=== PATIENT | female | born 1935 | race Caucasian/White ===

== ENCOUNTER → 2021-08-24 | Outpatient (CLI) | payer MEDICARE, BC ==
[~2021-08-24] MED LIST: COZAAR50 MG PO; FLAGYL500 MG PO; KEFLEX CAP 500500 MG PO; LEVAQUIN750 MG PO; LIPITOR TAB 2020 MG PO; PLAVIX 75 MG TA75 MG PO; SYNTHROID75 MCG PO; TOPROL XL50 MG PO
== END ==
LOC: RAD 09:59
DX: R10.9 Unspecified abdominal pain (principal)
CPT/HCPCS: 74018

== ENCOUNTER 2021-10-14 12:06 | Emergency (ER) | payer MEDICARE, BC | END 2021-10-14 12:45 | disposition left against medical advice (07) | LOC: ER1 12:06 | DX: Z53.21 Procedure and treatment not carried out due to patient leaving prior to being seen by health care provider (principal) ==

== ENCOUNTER 2021-10-30 13:42 | Inpatient (IN) | payer MEDICARE, BC ==
[~2021-10-30] VITALS: Ht 154.9 cm; Wt 95.7 kg
[2021-10-30 14:34] LABS: HEMOGLOBIN 12.8 gm/dl (12.3-15.3); RED BLOOD COUNT 4.06 M/UL (4.00-5.10); WHITE BLOOD COUNT 5.3 K/UL (4.5-11.0)
[2021-10-31] MEDS ORDERED: CYANOCOBAL1000 MCG/1 INJ (00:10)
[2021-10-31] MEDS ORDERED: VESICARE10 MG PO (00:11)
[2021-10-31 03:01] LABS: HEMOGLOBIN 11.9 gm/dl (12.3-15.3); RED BLOOD COUNT 3.81 M/UL (4.00-5.10); WHITE BLOOD COUNT 6.3 K/UL (4.5-11.0)
[2021-10-31 03:18] LABS: BUN/CREATININE RATIO 25 (0-10)
--- NOTE | 2021-11-01 11:03 | NUR ---
STATS ON RA ARE 83
[2021-11-02] MEDS ORDERED: LEVOFLOXACIN500 MG PO (09:19)
== END 2021-11-02 11:46 | disposition home or self-care (01) | DRG 193 ==
LOC: ER1 13:42 → CDU 16:35 → M/S 16:35
PROVIDERS: Nurse Practitioner; ADMIT Internal Medicine
DX: J15.9 Unspecified bacterial pneumonia (principal); J96.21 Acute and chronic respiratory failure with hypoxia; E87.2 Acidosis; Z20.822 Contact with and (suspected) exposure to COVID-19; E03.9 Hypothyroidism, unspecified; I35.0 Nonrheumatic aortic (valve) stenosis; E53.8 Deficiency of other specified B group vitamins; I12.9 Hypertensive chronic kidney disease with stage 1 through stage 4 chronic kidney disease, or unspecified chronic kidney disease; N18.30 Chronic kidney disease, stage 3 unspecified; G47.33 Obstructive sleep apnea (adult) (pediatric); H91.93 Unspecified hearing loss, bilateral; E78.5 Hyperlipidemia, unspecified; Z88.2 Allergy status to sulfonamides; Z88.1 Allergy status to other antibiotic agents; Z91.041 Radiographic dye allergy status; Z91.013 Allergy to seafood; Z83.6 Family history of other diseases of the respiratory system
CPT/HCPCS: 0240U; 36415; 36600; 71045; 80048; 81001; 82550; 82553; 82803; 83605; 83735; 83874; 83880; 84484; 85025; 85652; 86140; 87040; 93005; 94760; 96372; 96374; 99285; J0696; J1650

== ENCOUNTER → 2021-12-10 | Outpatient (CLI) | payer MEDICARE, BC ==
[~2021-12-10] MED LIST changes: +CYANOCOBAL1000 MCG/1 INJ; +LEVOFLOXACIN500 MG PO; +VESICARE10 MG PO
== END ==
LOC: RAD 11:05
DX: J18.9 Pneumonia, unspecified organism (principal)
CPT/HCPCS: 71046